=== PATIENT | female | born 1940 | race Caucasian/White ===

== ENCOUNTER 2016-07-29 18:11 | Emergency (ER) | payer MEDICARE, OTHER ==
[~2016-07-29 18:11] MED LIST: APRES50 PO; ASAB PO; BIOTIN10 MG PO; CAT2 PO; CEFT5 PO; CHOLESTEROL PO; CLONIDINE; COR40 PO; COZAAR100 MG PO; CRESTOR10 PO; CRESTOR20 MG PO; DEMA20 PO; DIABET2.5 PO; FISH OIL1200 MG PO; GLUCPH PO; GLUCPH8 PO; HUMALOGPEN SC; L20 PO; LEVAQUIN5T PO; LEVEMFLXPN SC; LISINOPRIL; LISINOPRIL40 MG PO; LOPID6 PO; MUCINEX600 MG PO; NORV10 PO; NORV5 PO; P10; SPIRO50 PO; T PO; TEG200 PO; TUSSIONEX1 ML PO; VITAMIN D1000 UNI1 PO; VITAMIN D400 UNI1 PO; ZITH250 PO; ZYRTEC ALLGY10 MG PO
[2016-07-29 18:48] LABS: BASOPHILS 0.6 %; BASOPHILS ABSOLUTE 0.05 10/3/uL (0.0-0.16); EOSINOPHILS ABSOLUTE 0.09 10/3/uL (0.0-0.53); ER CBC TAT 0 Hrs 02 Mins; IMMATURE GRANULOCYTES 1.2 %; IMMATURE GRANULOCYTES ABSOLUTE 0.11 10/3/uL (0.0-0.11); LYMPHOCYTES ABSOLUTE 2.17 10/3/uL (0.67-4.30); MEAN CORPUS HGB CONC 32.7 g/dL (32.0-36.0); MEAN CORPUSCULAR HEMOGLOB 29.3 pg (26.0-34.0); MEAN CORPUSCULAR VOLUME 89.6 fL (80-100); MEAN PLATELET VOLUME 10.7 fL (9.2-13.0); MONOCYTES 6.7 %; MONOCYTES ABSOLUTE 0.61 10/3/uL (0.21-1.20); NEUTROPHILS 66.5 %; NEUTROPHILS ABSOLUTE 6.03 10/3/uL (2.02-8.40); PLATELET COUNT 279 10/3/uL (150-400); RBC DISTRIBUTION WIDTH 13.3 % (12.0-16.0); WHITE BLOOD CELLS 9.1 10/3/uL (4.5-10.5)
[2016-07-29 18:49] LABS: HEMOGLOBIN 15.7 g/dL (12.0-16.0); MANUAL DIFF NO %; RED CELL COUNT 5.36 10/6/uL (4.0-5.6)
[2016-07-29 18:57] LABS: INTERNATIONAL NORMAL RATI 1.1 UNITS (-); PARTIAL THROMBO TIME 26.4 SEC (22.5-37.2); PROTIME (NOT ORD) 13.9 SEC (12.0-14.5)
[2016-07-29 19:06] LABS: CHEST PAIN PROFILE TAT 0 Hrs 20 Mins; CHLORIDE, SERUM 106 MMOL/L (96-112); CO2 (CARBON DIOXIDE) 28 MMOL/L (24-34); CREATININE 0.88 MG/DL (0.55-1.02); GFR AFRICAN AMERICAN 73 ML/MIN (>=60); GFR NON AFRICAN AMERICAN 63 ML/MIN (>=60); GLUCOSE, SERUM 160 MG/DL (60-99); POTASSIUM, SERUM 3.8 MMOL/L (3.5-5.3); SODIUM, SERUM 140 MMOL/L (135-148); TROPONIN I <0.02 NG/ML (<0.05)
[2016-07-29 19:07] LABS: BUN (BLOOD UREA NITROGEN) 21 MG/DL (6-23)
[2016-07-29 19:57] LABS: ALBUMIN 4.1 G/DL (3.5-5.0); ALKALINE PHOSPHATASE 146 U/L (45-117); DIRECT BILIRUBIN < 0.1 MG/DL (0.0-0.4); INDIRECT BILIRUBIN(NOT ORDER) 0.2 MG/DL (0.1-0.9); SGOT(AST) 19 U/L (5-40); SGPT(ALT) 22 U/L (5-65); TOTAL BILIRUBIN 0.3 MG/DL (0-1.2); TOTAL PROTEIN 8.6 G/DL (6.0-8.5)
== END 2016-07-30 00:09 | disposition home or self-care (01) ==
LOC: ER 18:11
PROVIDERS: Emergency Medicine
DX: M54.42 Lumbago with sciatica, left side (principal); M48.06 Spinal stenosis, lumbar region; M47.896 Other spondylosis, lumbar region; Z87.01 Personal history of pneumonia (recurrent); I12.9 Hypertensive chronic kidney disease with stage 1 through stage 4 chronic kidney disease, or unspecified chronic kidney disease; N18.9 Chronic kidney disease, unspecified; E11.22 Type 2 diabetes mellitus with diabetic chronic kidney disease; Z88.5 Allergy status to narcotic agent; Z79.899 Other long term (current) drug therapy; Z79.82 Long term (current) use of aspirin; Z79.84 Long term (current) use of oral hypoglycemic drugs; Z79.52 Long term (current) use of systemic steroids; Z79.4 Long term (current) use of insulin; W19.XXXA Unspecified fall, initial encounter
CPT/HCPCS: 72128; 72131; 80048; 80076; 83690; 83735; 84484; 85025; 85610; 85730; 93005; 96372; 99284; J1885